=== PATIENT | male | born 1965 | race Hispanic/Latino ===

== ENCOUNTER 2017-07-19 15:06 | Emergency (ER) | payer SELFPAY ==
--- NOTE | 2017-07-19 19:17 | Emergency Department Report ---
Upper Extremity - HPI Chief Complaint: Extremity Injury, Upper Stated Complaint: SWOLLEN LEFT HAND Time Seen by Provider: 07/19/17 19:07 Upper Extremity: Left Hand (pain and swelling) Occurred When: 2 Days Mechanism: Unsure Severity: severe (7 out of 10) Symptoms: Yes Pain with Movement (left hand), Yes Swelling (left hand), No Deformity, No Limited Range of Movement, No Numbness, No Bruising/Ecchymosis, No Laceration or Abrasion Other History: PT reports that he has left hand pain for 3 days and unsure if he 's been stung by an insect but denies any direct trauma. He reports since swelling without any redness. Denies any fever or chills. Denies restriction in movement to left hand. Denies any pain in the wrist or forearm. Pain is 7 out of 10 and a can. Blood pressure is 156/103 and it is recorded inpatient triage. Report that he has high blood pressure and is not on medication but when I asked him he said his mom and dad have high blood pressure and he does not. He is asymptomatic with elevated blood pressure. ED Review of Systems ROS: Stated complaint: SWOLLEN LEFT HAND Other details as noted in HPI Comment: All other systems reviewed and negative Constitutional: no symptoms reported Respiratory: no symptoms reported Cardiovascular: denies: chest pain, palpitations, edema, syncope Gastrointestinal: denies: abdominal pain, nausea, vomiting, diarrhea, constipation Musculoskeletal: joint swelling, arthralgia. denies: back pain, myalgia Skin: denies: rash Neurological: denies: headache, numbness, paresthesias, confusion, abnormal gait , vertigo ED Past Medical Hx - Past Medical History Previous Medical History?: Yes Hx Hypertension: Yes (no meds) - Surgical History Past Surgical History?: No - Family History Family history: hypertension - Social History Smoking Status: Never Smoker Substance Use Type: None Other Social History: - Medications Home Medications: Home Medications Medication Instructions Recorded Confirmed Last Taken Type Ibuprofen [Motrin] 800 mg PO Q8HR PRN #12 tablet 07/12/15 Unknown Rx Sulfamethoxazole/Trimethoprim 1 each PO BID #20 tablet 07/12/15 Unknown Rx [Bactrim DS TAB] Cephalexin [Keflex] 500 mg PO Q6HR #28 capsule 01/05/16 Unknown Rx Ibuprofen [Motrin] 600 mg PO Q8H PRN #20 tablet 01/05/16 Unknown Rx Sulfamethoxazole/Trimethoprim 2 each PO BID #28 tablet 01/05/16 Unknown Rx [Bactrim DS TAB] oxyCODONE [Roxicodone TAB] 5 mg PO Q6HR PRN #10 tablet 01/05/16 Unknown Rx Cetirizine HCl [ZyrTEC] 10 mg PO QDAY #7 capsule 06/27/16 Unknown Rx Fluticasone [Flonase] 1 spray NS QDAY #1 bottle 06/27/16 Unknown Rx predniSONE [Deltasone] 50 mg PO QDAY #5 tab 06/27/16 Unknown Rx traMADol [Ultram] 50 mg PO Q6HR PRN #20 tablet 07/19/17 Unknown Rx Upper Extremity Exam - Exam General: Vital signs noted. No distress. Alert and acting appropriately. Head and Torso: No HEENT Abnormality, No Neck Tenderness, No Chest/Lungs Abnormality, No Abdominal Tenderness, No Back Tenderness Shoulder Exam: Yes Normal Range of Motion in Shoulder, No Shoulder Tenderness, No Clavicle Tenderness, No Shoulder Deformity, No AC Joint Tenderness Arm Exam: No Arm/Humerus Tenderness, No Arm Deformity Elbow: Yes Normal Range of Motion in Elbow, No Elbow Tenderness, No Elbow Deformity Forearm: No Forearm Tenderness, No Forearm Deformity, No Pain with Pronation, No Pain with Supination Wrist: Yes Normal ROM in Wrist, No Wrist Tenderness, No Wrist Deformity, No Snuffbox Tenderness, No Pain with Axial Thumb Compression Hand: Yes Hand Tenderness (mild tenderness to dorsal aspect of the left hand), Yes Normal ROM in Digit(s) (left hand and fingers), No Hand Deformity, No Digit Tenderness, No Digit(s) Deformity (no restrictions in movement. Patient able to open and close is hands without any difficulties.), No Tendon Dysfunction CMS Exam: Yes Normal Distal Pulses, Yes Normal Capillary Refill, Yes Normal Distal Sensation, No Broken Skin (no erythema noted.) ED Course Vital Signs 07/19/17 15:32 Temperature 97.8 F Pulse Rate 96 H Respiratory 18 Rate Blood Pressure 156/103 O2 Sat by Pulse 96 Oximetry Vital Signs 07/19/17 07/19/17 07/19/17 15:32 19:58 20:06 Temperature 97.8 F 98.4 F Pulse Rate 96 H 64 64 Respiratory 18 20 Rate Blood Pressure 156/103 183/102 Blood Pressure 183/102 [Left] O2 Sat by Pulse 96 98 Oximetry 07/19/17 07/19/17 20:59 21:32 Temperature Pulse Rate 63 64 Respiratory 20 20 Rate Blood Pressure Blood Pressure 175/106 160/90 [Left] O2 Sat by Pulse 97 97 Oximetry - Reevaluation(s) Reevaluation #1: 07/19/17 21:35 Pt given clonidine 0.2 mg for elevated blood pressure with blood pressure now at 160/90. He was also given Toradol 60 mg IM for arthralgia left hand. - Orthopedic Splinting/Casting Injury #1 Side: left Upper Extremity Injury Location: hand Upper Extremity Immobilizer: volar spint (prefabricated splint.) Additional Comments: Patient with good color, movement, sensation and temperature fingers of left hand. ED Medical Decision Making - Radiology Data Radiology results: report reviewed X-ray report of left hand reveals no acute osseous abnormality. Soft tissues grossly unremarkable. Joint space is maintained. He has 5 mm ganglionic cyst distal ulnar area. - Medical Decision Making ED course: Pt here reports he's been having left hand pain with some swelling over the past 3 days. He is unsure of causes but denies any trauma. Denies any fever or chills or redness to hand. Physical findings for mild swelling to left hand without any restrictions or erythema. Left hand splint placed and patient instructed that he needs to follow-up with orthopedic doctor. I also gave him results of x-ray which shows that he has no bony abnormality or no soft tissue swelling and possibility of distal ulnar ganglion cystPtblood pressure also elevated and he says he is a family history of high blood pressure and he reported in triage that he has high blood pressure without taking any medication but denies this to me. I discussed the patient that he needs to keep a log of his blood pressure and [facility] She was given Toradol 60 mg IM for left hand pain which relieved his pain and left hand splint placed the procedure note for detail. He was given clonidine 0.2 mg for elevated blood pressure and his blood pressure is at 160/90 currently. Patient discharged home with prescription for tramadol and to follow up with [facility] in 2-3 days. Critical care attestation.: If time is entered above; I have spent that time in minutes in the direct care of this critically ill patient, excluding procedure time. ED Disposition Clinical Impression: Ganglion, left hand, Hand pain, left, Swelling of left hand, Elevated blood pressure reading Disposition: DC-01 TO HOME OR SELFCARE Is pt being admited?: No Does the pt Need Aspirin: No Condition: Stable Instructions: Arthralgia (ED), Heart Healthy Diet (ED), Hypertension (ED), DASH Eating Plan (ED) Additional Instructions: He is follow up with orthopedic doctor as instructed Keep splint on until seen by orthopedic doctor Take tramadol for pain but please do not drive or operate heavy machinery as this medication can cause drowsiness. These keep a log a few blood pressure and follow-up at [facility]. Take log with [facility] for evaluation. Refer to detailed below for information and ganglion cyst A ganglion cyst is a fluid-filled swelling overlying a joint or tendon sheath. Ganglion cysts are thought to arise from a herniation of dense connective tissue from tendon sheaths, ligaments, joint capsules, bursae, and menisci. They contain a mucinous, gelatinous fluid. They can occur almost anywhere in the body, but the most common location for ganglion cysts is the dorsal side of the wrist (picture 1). (See 'Description' above.) Ganglion cysts are the most common soft tissue tumors of the hand. They can occur at all ages, but are most common in the second to fourth decades with a slight female predominance. (See 'Epidemiology' above.) Ganglia may present as an obvious swelling on physical examination or may only be manifested by joint (particularly wrist) pain. The cyst is typically firm, smooth, rounded, rubbery, and at times tender. Patients may notice that the size of the cyst changes over time. Occasionally, the cyst can impinge and cause nerve compression, resulting in sensory and/or motor loss. In addition, many patients seek medical attention for cosmetic reasons or out of concern for possible malignancy rather than due to any symptoms. (See 'Presentation' above.) The diagnostic approach depends on the physical examination. In patients with a readily palpable lesion, transillumination provides an easy in-office method for differentiating ganglia from solid tumors; ganglion cysts transilluminate while solid tumors do not. If available, ultrasonography is useful in the diagnosis of ganglia. For patients with occult wrist pain, magnetic resonance imaging (MRI) can differentiate most ganglia from other types of masses. (See ' Diagnosis' above.) Patients with asymptomatic ganglion cysts of the wrist or hand can be managed with reassurance and observation. Over 50 percent of patients may experience spontaneous resolution of ganglion cysts, and do not require intervention. (See 'Observation' above.) For patients with bothersome symptoms, we suggest aspiration of the ganglion cyst rather than surgical treatment (Grade 2C). However, the patient should be informed that more than half of ganglion cysts treated with aspiration will recur. Injection with glucocorticoids does not confer an added benefit. (See ' Ganglion cyst aspiration' above.) For patients who fail conservative therapy, surgical excision of the ganglion cyst may help relieve symptoms. (See 'Surgical therapy' above.) Prescriptions: traMADol [Ultram] 50 mg PO Q6HR PRN #20 tablet PRN Reason: Pain Referrals: [facility] [Outside] - 2-3 Days Forms: Accompanied Note, Work/School Release Form(ED)
[2017-07-19] MEDS ORDERED: TORADOL IM ONE (19:26)
[2017-07-19] MEDS ORDERED: CATAPRES PO ONE (20:05)
[2017-07-19] MEDS ORDERED: CATAPRES ONE (20:05)
--- NOTE | 2017-07-19 20:35 | XRay Report ---
FINAL REPORT EXAM: XR HAND 3+V LT HISTORY: lt hand pain and swelling TECHNIQUE: 3 views of left hand. PRIORS: None. FINDINGS: No apparent fracture or dislocation. Small and well-circumscribed, lucency in the distal ulnar aspect of capitate measuring approximately 5 mm may represent intraosseous ganglion cyst. Joint spaces maintained. Soft tissues grossly unremarkable. IMPRESSION: 1. No acute osseous abnormality.
[2017-07-20 11:32] VITALS: BP 160/90
== END 2017-07-19 22:02 | disposition home or self-care (01) ==
LOC: ED 15:06
DX: M67.442 Ganglion, left hand (principal); I10 Essential (primary) hypertension
CPT/HCPCS: 29125; 73130; 96372; 99283; J1885

== ENCOUNTER 2019-12-14 04:48 | Emergency (ER) | payer SELFPAY ==
[2019-12-14 05:32] LABS: Basophils # (Auto) 0.1 K/mm3 (0.0-0.1); Basophils % (Auto) 0.9 % (0.0-1.8); Eosinophils % (Auto) 0.6 % (0.0-4.3); Hematocrit 44.8 % (35.5-45.6); Hemoglobin 15.6 gm/dl (11.8-15.2); Lymphocytes # (Auto) 1.1 K/mm3 (1.2-5.4); Lymphocytes % (Auto) 19.5 % (13.4-35.0); Mean Corpuscular HGB Conc 35 % (32-34); Mean Corpuscular Volume 87 fl (84-94); Monocytes # (Auto) 0.8 K/mm3 (0.0-0.8); Platelet Count 171 K/mm3 (140-440); Red Blood Count 5.18 M/mm3 (3.65-5.03); Red Cell Distribution Width 13.1 % (13.2-15.2)
[2019-12-14 05:55] LABS: Alanine Aminotransferase 14 units/L (7-56); BUN/Creatinine Ratio 13; Blood Urea Nitrogen 13 mg/dL (9-20); Calcium 9.1 mg/dL (8.4-10.2); Hemolysis Index 16
[2019-12-14] MEDS ORDERED: METOCLOPRAMIDE 10 MG/2 ML INJ IV STA (10:17)
[2019-12-14] MEDS ORDERED: diphenhydrAMINE 50 MG/ML VIAL IV STA (10:17)
[2019-12-14] MEDS ORDERED: KETOROLAC 30 MG/1 ML INJ IV STA (10:17)
[2019-12-14] MEDS ORDERED: SODIUM CHLORIDE 0.9% 1000 ML 1,000 ML IV ONE (10:17)
[2019-12-14] MEDS ORDERED: cloNIDine 0.2 MG TAB PO STA (12:28)
[2019-12-14] MEDS ORDERED: cloNIDine 0.1 MG TAB ONE (12:45)
[2019-12-14 12:49] VITALS: BP 157/88
--- NOTE | 2019-12-14 13:01 | Emergency Department Report ---
ED Headache HPI - General Chief Complaint: Headache Stated Complaint: HEADACHE/NECK PAIN Time Seen by Provider: 12/14/19 09:34 - History of Present Illness Initial Comments: 54-year-old male with a past medical history of untreated hypertension as well as migraine presents emerged from complaining of a 1 to 2-day history of a non-improving headache primarily to the occipital parietal region and a dull throbbing fashion worse with light and position. Reports no loss of vision, no presyncope no tinnitus, no neck pain, fever, chills, sweats no chest pain no palpitations. States he has no history of hypertension but noncompliant with his medications. Reports having no history of any CVA or cardiovascular disease to knowledge. He does not take any stimulants or any any other substances or medications which could cause his blood pressure to elevate to his knowledge.. States that he has does have a primary care provider in this area but is trying to arrange a follow-up appointment in the near future Quality: mild, moderate Recent Head Trauma: frequent headaches Associated Symptoms: denies: fatigue, facial pain, loss of consciousness, nausea/vomiting, nasal congestion, seizures, sinus infection, stiff neck, vision changes Allergies/Adverse Reactions: Allergies No Known Allergies Allergy (Verified 07/12/15 21:34) Home Medications: Ambulatory Orders Ibuprofen [Motrin] 800 mg PO Q8HR PRN #12 tablet 07/12/15 Sulfamethoxazole/Trimethoprim [Bactrim DS TAB] 1 each PO BID #20 tablet 07/12/15 Ibuprofen [Motrin] 600 mg PO Q8H PRN #20 tablet 01/05/16 Sulfamethoxazole/Trimethoprim [Bactrim DS TAB] 2 each PO BID #28 tablet 01/05/16 cephALEXin [Keflex] 500 mg PO Q6HR #28 capsule 01/05/16 oxyCODONE [roxiCODONE] 5 mg PO Q6HR PRN #10 tablet 01/05/16 Cetirizine HCl [ZyrTEC] 10 mg PO QDAY #7 capsule 06/27/16 Fluticasone [Flonase] 1 spray NS QDAY #1 bottle 06/27/16 predniSONE [Deltasone] 50 mg PO QDAY #5 tab 06/27/16 traMADoL [Ultram] 50 mg PO Q6HR PRN #20 tablet 07/19/17 amLODIPine 5 mg PO DAILY #20 tab 12/14/19 ED Review of Systems ROS: Stated complaint: HEADACHE/NECK PAIN Other details as noted in HPI Comment: All other systems reviewed and negative ED Past Medical Hx - Past Medical History Previous Medical History?: Yes Hx Hypertension: Yes (no meds) - Surgical History Past Surgical History?: No - Social History Smoking Status: Never Smoker - Medications Home Medications: Home Medications Medication Instructions Recorded Confirmed Last Taken Type Ibuprofen [Motrin] 800 mg PO Q8HR PRN #12 tablet 07/12/15 Unknown Rx Sulfamethoxazole/Trimethoprim 1 each PO BID #20 tablet 07/12/15 Unknown Rx [Bactrim DS TAB] Ibuprofen [Motrin] 600 mg PO Q8H PRN #20 tablet 01/05/16 Unknown Rx Sulfamethoxazole/Trimethoprim 2 each PO BID #28 tablet 01/05/16 Unknown Rx [Bactrim DS TAB] cephALEXin [Keflex] 500 mg PO Q6HR #28 capsule 01/05/16 Unknown Rx oxyCODONE [roxiCODONE] 5 mg PO Q6HR PRN #10 tablet 01/05/16 Unknown Rx Cetirizine HCl [ZyrTEC] 10 mg PO QDAY #7 capsule 06/27/16 Unknown Rx Fluticasone [Flonase] 1 spray NS QDAY #1 bottle 06/27/16 Unknown Rx predniSONE [Deltasone] 50 mg PO QDAY #5 tab 06/27/16 Unknown Rx traMADoL [Ultram] 50 mg PO Q6HR PRN #20 tablet 07/19/17 Unknown Rx amLODIPine 5 mg PO DAILY #20 tab 12/14/19 Unknown Rx ED Physical Exam - General Limitations: No Limitations General appearance: alert, in no apparent distress - Head Head exam: Present: atraumatic, normocephalic - Eye Eye exam: Present: normal appearance, PERRL, EOMI. Absent: nystagmus Pupils: Present: normal accommodation, other (Negative funduscopic examination) - ENT ENT exam: Present: normal exam, mucous membranes moist, TM's normal bilaterally - Neck Neck exam: Present: normal inspection, full ROM. Absent: meningismus, lymphadenopathy, thyromegaly - Respiratory Respiratory exam: Present: normal lung sounds bilaterally. Absent: respiratory distress, wheezes, rales, rhonchi, chest wall tenderness, accessory muscle use - Cardiovascular Cardiovascular Exam: Present: regular rate, normal rhythm. Absent: systolic murmur, diastolic murmur, rubs, gallop - GI/Abdominal GI/Abdominal exam: Present: soft, normal bowel sounds - Rectal Rectal exam: Present: deferred - Extremities Exam Extremities exam: Present: normal inspection, full ROM, normal capillary refill - Back Exam Back exam: Present: normal inspection. Absent: CVA tenderness (R), CVA tenderness (L) - Neurological Exam Neurological exam: Present: alert, oriented X3, CN II-XII intact - Psychiatric Psychiatric exam: Present: normal affect, normal mood - Skin Skin exam: Present: warm, dry, intact, normal color. Absent: rash ED Course Vital Signs 12/14/19 12/14/19 12/14/19 04:50 10:17 12:49 Temperature 98.8 F Pulse Rate 91 H 76 78 Respiratory 18 20 Rate Blood Pressure 196/108 157/88 Blood Pressure 186/102 [Right] O2 Sat by Pulse 97 98 Oximetry 12/14/19 12:52 Temperature Pulse Rate 78 Respiratory 20 Rate Blood Pressure Blood Pressure 157/88 [Right] O2 Sat by Pulse 94 Oximetry ED Medical Decision Making - Lab Data Result diagrams: 12/14/19 05:07 12/14/19 05:07 - Medical Decision Making 54-year-old noncompliant male with a history of hypertension presents emerge department with a hypertensive headache/hypertensive urgency. He was treated accordingly with medications to resolve the hypertension and headache. Reports this is resting well with significantly improved pain known further neurological symptoms remain. Critical care attestation.: If time is entered above; I have spent that time in minutes in the direct care of this critically ill patient, excluding procedure time. ED Disposition Clinical Impression: Hypertensive urgency, Cephalgia Disposition: DC-01 TO HOME OR SELFCARE Is pt being admited?: No Does the pt Need Aspirin: No Condition: Stable Instructions: Acute Headache (ED), Hypertensive Crisis (ED), Hypertension (ED) Prescriptions: amLODIPine 5 mg PO DAILY #20 tab Referrals: PRIMARY CARE, [Primary Care Provider] - 3-5 Days ARNOLD MUNOZ MD [Staff Physician] - 3-5 Days
== END 2019-12-14 13:41 | disposition home or self-care (01) ==
LOC: ED 04:48
DX: I16.0 Hypertensive urgency (principal); G43.909 Migraine, unspecified, not intractable, without status migrainosus; Z79.1 Long term (current) use of non-steroidal anti-inflammatories (NSAID); Z79.899 Other long term (current) drug therapy
CPT/HCPCS: 36415; 80053; 85025; 96374; 96375; 99283; J1200; J1885; J2765; J7030

== ENCOUNTER 2019-12-23 14:25 | Emergency (ER) | payer SELFPAY ==
[2019-12-23 14:37] VITALS: BP 192/102
== END 2019-12-23 14:40 | disposition home or self-care (01) ==
LOC: ED 14:25
DX: J06.9 Acute upper respiratory infection, unspecified (principal)
CPT/HCPCS: 99281

== ENCOUNTER 2020-02-02 09:40 | Emergency (ER) | payer SELFPAY ==
[2020-02-02] MEDS ORDERED: MECLIZINE 25 MG TAB PO ONE (10:25)
[2020-02-02 10:42] LABS: Basophils # (Auto) 0.1 K/mm3 (0.0-0.1); Basophils % (Auto) 1.1 % (0.0-1.8); Eosinophils # (Auto) 0.1 K/mm3 (0.0-0.4); Eosinophils % (Auto) 1.8 % (0.0-4.3); Hematocrit 44.5 % (35.5-45.6); Hemoglobin 15.4 gm/dl (11.8-15.2); Lymphocytes # (Auto) 1.4 K/mm3 (1.2-5.4); Lymphocytes % (Auto) 23.5 % (13.4-35.0); Mean Corpuscular HGB Conc 35 % (32-34); Mean Corpuscular Volume 87 fl (84-94); Monocytes # (Auto) 0.4 K/mm3 (0.0-0.8); Monocytes % (Auto) 7.6 % (0.0-7.3); Platelet Count 206 K/mm3 (140-440); Red Blood Count 5.13 M/mm3 (3.65-5.03); Red Cell Distribution Width 13.3 % (13.2-15.2)
--- NOTE | 2020-02-02 10:50 | Emergency Department Report ---
ED Dizziness HPI - General Chief Complaint: Dizziness Stated Complaint: BLURRY VISION Time Seen by Provider: 02/02/20 10:19 Source: patient Mode of arrival: Ambulatory Limitations: No Limitations - History of Present Illness Initial Comments: 54-year-old male with history of hypertension presents to ED with dizziness and blurred vision upon waking this morning. Patient states he went to bed at around midnight feeling okay. Patient states he awoke at 530 this morning with dizziness described as room spinning, and feeling drunk. Patient reports his had to help him out of bed because he felt so off balance. Patient reports nausea, no vomiting. Also reports very mild headache. Patient reports blurred vision. When asked to cover each eye, vision is okay, however reports he is seeing double when eyes are uncovered. Patient denies any alcohol or drug use. MD Complaint: dizziness -: This morning Timing: awoke with symptoms Description: "room spinning" History of Same: No History of Trauma: No Severity: moderate Improves With: remaining still Worsens With: movement Associated Symptoms: denies: chest pain, cough, fever/chills, shortness of breath - Related Data Previous Rx's Medication Instructions Recorded Last Taken Type Ibuprofen [Motrin] 800 mg PO Q8HR PRN #12 tablet 07/12/15 Unknown Rx Sulfamethoxazole/Trimethoprim 1 each PO BID #20 tablet 07/12/15 Unknown Rx [Bactrim DS TAB] Ibuprofen [Motrin] 600 mg PO Q8H PRN #20 tablet 01/05/16 Unknown Rx Sulfamethoxazole/Trimethoprim 2 each PO BID #28 tablet 01/05/16 Unknown Rx [Bactrim DS TAB] cephALEXin [Keflex] 500 mg PO Q6HR #28 capsule 01/05/16 Unknown Rx oxyCODONE [roxiCODONE] 5 mg PO Q6HR PRN #10 tablet 01/05/16 Unknown Rx Cetirizine HCl [ZyrTEC] 10 mg PO QDAY #7 capsule 06/27/16 Unknown Rx Fluticasone [Flonase] 1 spray NS QDAY #1 bottle 06/27/16 Unknown Rx predniSONE [Deltasone] 50 mg PO QDAY #5 tab 06/27/16 Unknown Rx traMADoL [Ultram] 50 mg PO Q6HR PRN #20 tablet 07/19/17 Unknown Rx amLODIPine 5 mg PO DAILY #20 tab 12/23/19 Unknown Rx Meclizine [Antivert] 25 mg PO TID PRN #20 tablet 02/02/20 Unknown Rx metFORMIN [Glucophage] 500 mg PO BID #60 tablet 02/02/20 Unknown Rx Allergies Allergy/AdvReac Type Severity Reaction Status Date / Time No Known Allergies Allergy Verified 02/02/20 09:43 ED Review of Systems ROS: Stated complaint: BLURRY VISION Other details as noted in HPI Comment: All other systems reviewed and negative Constitutional: denies: chills, fever Respiratory: denies: cough, shortness of breath Cardiovascular: denies: chest pain Gastrointestinal: nausea. denies: vomiting Neurological: headache, vertigo. denies: weakness, numbness, paresthesias ED Past Medical Hx - Past Medical History Previous Medical History?: Yes Hx Hypertension: Yes - Surgical History Past Surgical History?: No - Social History Smoking Status: Never Smoker Substance Use Type: Alcohol - Medications Home Medications: Home Medications Medication Instructions Recorded Confirmed Last Taken Type Ibuprofen [Motrin] 800 mg PO Q8HR PRN #12 tablet 07/12/15 Unknown Rx Sulfamethoxazole/Trimethoprim 1 each PO BID #20 tablet 07/12/15 Unknown Rx [Bactrim DS TAB] Ibuprofen [Motrin] 600 mg PO Q8H PRN #20 tablet 01/05/16 Unknown Rx Sulfamethoxazole/Trimethoprim 2 each PO BID #28 tablet 01/05/16 Unknown Rx [Bactrim DS TAB] cephALEXin [Keflex] 500 mg PO Q6HR #28 capsule 01/05/16 Unknown Rx oxyCODONE [roxiCODONE] 5 mg PO Q6HR PRN #10 tablet 01/05/16 Unknown Rx Cetirizine HCl [ZyrTEC] 10 mg PO QDAY #7 capsule 06/27/16 Unknown Rx Fluticasone [Flonase] 1 spray NS QDAY #1 bottle 06/27/16 Unknown Rx predniSONE [Deltasone] 50 mg PO QDAY #5 tab 06/27/16 Unknown Rx traMADoL [Ultram] 50 mg PO Q6HR PRN #20 tablet 07/19/17 Unknown Rx amLODIPine 5 mg PO DAILY #20 tab 12/23/19 Unknown Rx Meclizine [Antivert] 25 mg PO TID PRN #20 tablet 02/02/20 Unknown Rx metFORMIN [Glucophage] 500 mg PO BID #60 tablet 02/02/20 Unknown Rx ED Physical Exam - General Limitations: No Limitations General appearance: alert, in no apparent distress - Head Head exam: Present: atraumatic, normocephalic - Eye Eye exam: Present: normal appearance, PERRL, nystagmus (Mild), other (Vision grossly intact with each eye covered, however with both eyes uncovered patient is seeing double) - ENT ENT exam: Present: mucous membranes moist - Neck Neck exam: Present: normal inspection - Respiratory Respiratory exam: Present: normal lung sounds bilaterally. Absent: respiratory distress - Cardiovascular Cardiovascular Exam: Present: regular rate, normal rhythm - GI/Abdominal GI/Abdominal exam: Present: soft. Absent: distended, tenderness - Extremities Exam Extremities exam: Present: normal inspection - Neurological Exam Neurological exam: Present: alert, oriented X3, CN II-XII intact, other (Finger- nose normal, [id number]-[id number] normal). Absent: motor sensory deficit - Psychiatric Psychiatric exam: Present: normal affect, normal mood - Skin Skin exam: Present: warm, dry, intact, normal color ED Course Vital Signs 02/02/20 02/02/20 02/02/20 09:47 10:45 11:00 Temperature 98.1 F Pulse Rate 70 64 67 Respiratory 18 13 15 Rate Blood Pressure 166/90 172/94 Blood Pressure 141/97 [Left] O2 Sat by Pulse 97 98 98 Oximetry 02/02/20 02/02/20 02/02/20 11:30 11:45 12:00 Temperature Pulse Rate 63 66 64 Respiratory 15 6 L 12 Rate Blood Pressure 157/86 168/89 159/87 Blood Pressure [Left] O2 Sat by Pulse 99 98 98 Oximetry 02/02/20 02/02/20 02/02/20 12:15 12:31 12:45 Temperature Pulse Rate 63 68 70 Respiratory 11 L 11 L 13 Rate Blood Pressure 164/87 163/96 158/94 Blood Pressure [Left] O2 Sat by Pulse 100 99 97 Oximetry 02/02/20 13:15 Temperature Pulse Rate 78 Respiratory 13 Rate Blood Pressure Blood Pressure 150/92 [Left] O2 Sat by Pulse 97 Oximetry - Reevaluation(s) Reevaluation #1: 02/02/20 11:41 Pt reports his dizziness has resolved since receiving the meclizine. Glucose 374. Denies hx of diabetes, however, does not currently have a PCP. States BP med prescription was obtained from an ER visit. Reevaluation #2: 02/02/20 12:36 Pt was able to ambulate around ED. Initially felt a bit unsteady, but this then improved and pt was able to walk unassisted w/ steady gait. Pt also reports resolution of double vision. Feels comfortable for d/c home. ED Medical Decision Making - Lab Data Result diagrams: 02/02/20 10:30 02/02/20 10:27 - EKG Data -: EKG Interpreted by Me EKG shows normal: sinus rhythm, axis, intervals, QRS complexes, ST-T waves Rate: normal - EKG Data Interpretation: no acute changes - Radiology Data Radiology results: report reviewed, image reviewed - Medical Decision Making 54 yo M w/ vertigo, double vision. Meclizine given, pt currently able to ambulate, reports symptoms greatly improved. Double vision resolved. IV fluids also given due to hyperglycemia w/o signs of DKA. Pt started on metformin. Outpt f/u advised. Return precautions given. - Differential Diagnosis CVA, BPV, metabolic abnormality Critical care attestation.: If time is entered above; I have spent that time in minutes in the direct care of this critically ill patient, excluding procedure time. ED Disposition Clinical Impression: BPV (benign positional vertigo), Hyperglycemia, New onset type 2 diabetes mellitus Disposition: DC- TO HOME OR SELFCARE Is pt being admited?: No Condition: Stable Instructions: Diabetes Mellitus Type 2 in Adults (ED) Prescriptions: Meclizine [Antivert] 25 mg PO TID PRN #20 tablet PRN Reason: Vertigo metFORMIN [Glucophage] 500 mg PO BID #60 tablet Referrals: [facility] MD JAKOB [Primary Care Provider] - 3-5 Days ARNOLD MUNOZ MD [Staff Physician] - 3-5 Days Forms: Work/School Release Form(ED) Time of Disposition: 12:39
[2020-02-02 11:06] LABS: Alanine Aminotransferase 13 units/L (7-56); Albumin 3.7 g/dL (3.9-5); BUN/Creatinine Ratio 11; Blood Urea Nitrogen 10 mg/dL (9-20); Calcium 8.8 mg/dL (8.4-10.2); Hemolysis Index 9
[2020-02-02] MEDS ORDERED: SODIUM CHLORIDE 0.9% 1000 ML 1,000 ML IV ONE (11:15)
--- NOTE | 2020-02-02 12:14 | Cat Scan Report ---
CT BRAIN: 02/02/2020 INDICATION / CLINICAL INFORMATION: dizziness, blurred vision. COMPARISON: None available. FINDINGS: BRAIN/INTRACRANIAL STRUCTURES: Unenhanced CT images of the brain demonstrate no evidence of acute int racranial abnormality. Ventricles and sulci are slightly prominent in size for a patient of this age, consistent with some u nderlying diffuse cerebral atrophy. There is no CT evidence of acute ischemic injury, hemorrhage, or mass. Chronic white matter hypoatten uation is noted. There is evidence of some old lacunar changes in the left basal ganglia. EXTRACRANIAL STRUCTURES: Unremarkable. IMPRESSION: No acute abnormality. Chronic changes. All CT scans at this location are performed using dose reduction to ALARA by means of automated expos ure control. Signer Name: Porter Kern MD Signed: 02/02/2020 12:10 PM Workstation Name: [id number]
[2020-02-02 13:20] VITALS: BP 150/92
== END 2020-02-02 13:15 | disposition home or self-care (01) ==
LOC: ED 09:40
DX: H81.10 Benign paroxysmal vertigo, unspecified ear (principal); E11.65 Type 2 diabetes mellitus with hyperglycemia; I10 Essential (primary) hypertension; Z79.1 Long term (current) use of non-steroidal anti-inflammatories (NSAID); Z79.4 Long term (current) use of insulin; Z79.899 Other long term (current) drug therapy
CPT/HCPCS: 36415; 70450; 80053; 85025; 93005; 96360; 99284; J7030

== ENCOUNTER 2020-12-22 04:58 | Emergency (ER) | payer SELFPAY ==
--- NOTE | 2020-12-22 08:08 | Emergency Department Report ---
ED Rash HPI - HPI Chief Complaint: Skin Rash Stated Complaint: RASH Time Seen by Provider: 12/22/20 07:41 Duration: 3 Days Location: Other (left groin) Suspected Cause: Unknown Rash Symptoms: Yes Itching, No Facial Swelling, No Tongue/Oral Swelling, No Breathing Difficulties, No Choking Sensation, No Wheezing/Dyspnea, No Peeling, No Blistering, No Fever, No Lightheaded, No Malaise, No Myalgias Severity: mild Other History: This is a 55-year-old male nontoxic, well nourished in appearance, no acute signs of distress presents to the ED with c/o of redness and pain with itching to left groin area times several days. Patient denies any pus or drainage. Patient denies any fever, chills, nausea, vomiting, chest pain , shortness of breath, headache or stiff neck. Patient denies any allergies. ED Review of Systems ROS: Stated complaint: RASH Other details as noted in HPI Comment: All other systems reviewed and negative Constitutional: denies: chills, fever Eyes: denies: eye pain, eye discharge, vision change ENT: denies: ear pain, throat pain Respiratory: denies: cough, shortness of breath, wheezing Cardiovascular: denies: chest pain, palpitations Endocrine: no symptoms reported Gastrointestinal: denies: abdominal pain, nausea, diarrhea Genitourinary: denies: urgency, dysuria Musculoskeletal: denies: back pain, joint swelling, arthralgia Skin: rash. denies: lesions, change in color, change in hair/nails, pruritus Neurological: denies: headache, weakness, paresthesias Psychiatric: denies: anxiety, depression Hematological/Lymphatic: denies: easy bleeding, easy bruising ED Past Medical Hx - Past Medical History Previous Medical History?: Yes Hx Hypertension: Yes Hx Diabetes: Yes - Surgical History Past Surgical History?: No - Social History Smoking Status: Never Smoker Substance Use Type: None - Medications Home Medications: Home Medications Medication Instructions Recorded Confirmed Last Taken Type Ibuprofen [Motrin] 800 mg PO Q8HR PRN #12 tablet 07/12/15 Unknown Rx Sulfamethoxazole/Trimethoprim 1 each PO BID #20 tablet 07/12/15 Unknown Rx [Bactrim DS TAB] Ibuprofen [Motrin] 600 mg PO Q8H PRN #20 tablet 01/05/16 Unknown Rx Sulfamethoxazole/Trimethoprim 2 each PO BID #28 tablet 01/05/16 Unknown Rx [Bactrim DS TAB] cephALEXin [Keflex] 500 mg PO Q6HR #28 capsule 01/05/16 Unknown Rx oxyCODONE [roxiCODONE] 5 mg PO Q6HR PRN #10 tablet 01/05/16 Unknown Rx Cetirizine HCl [ZyrTEC] 10 mg PO QDAY #7 capsule 06/27/16 Unknown Rx Fluticasone [Flonase] 1 spray NS QDAY #1 bottle 06/27/16 Unknown Rx predniSONE [Deltasone] 50 mg PO QDAY #5 tab 06/27/16 Unknown Rx traMADoL [Ultram] 50 mg PO Q6HR PRN #20 tablet 07/19/17 Unknown Rx amLODIPine 5 mg PO DAILY #20 tab 12/23/19 Unknown Rx Meclizine [Antivert] 25 mg PO TID PRN #20 tablet 02/02/20 Unknown Rx metFORMIN [Glucophage] 500 mg PO BID #60 tablet 02/02/20 Unknown Rx Clindamycin [Clindamycin CAP] 300 mg PO Q8H #21 cap 12/22/20 Unknown Rx Clotrimazole 1% [Lotrimin 1%] 15 gm TP BID #1 tube 12/22/20 Unknown Rx Rash Exam - Exam General: Vital signs noted. No distress. Alert and acting appropriately. HEENT: No Periorbital Edema, No Conjuctival Injection, No Chemosis, No Perioral Edema, No Tongue Edema, No Uvular Edema, No Compromised Airway, No Drooling Lungs: Yes Good Air Exchange (Normal Breath Sounds), No Wheezes, No Ronchi, No Stridor, No Cough, No Labored Respirations, No Retractions, No Use of Accessory Muscles, No Other Abnormal Lung Sounds Heart: Yes Regular, No Murmur Skin: Yes Other (Erythematous and scaly plaque in the crural fold and medial aspect of the left thigh), No Urticarial Rash, No Maculopapular Rash, No Morbilliform rash, No Bulla(e), No Excoriations, No Weeping, No Tenderness, No Erythema, No Edema, No Encrustations Other: Positive: Abdomen Normal, Neurologic Normal, Musculoskeletal Normal ED Course Vital Signs 12/22/20 05:16 Temperature 98.7 F Pulse Rate 95 H Respiratory 18 Rate Blood Pressure 156/88 O2 Sat by Pulse 97 Oximetry - Reevaluation(s) Reevaluation #1: 12/22/20 08:06 Patient is speaking in full sentences with no signs of distress noted. ED Medical Decision Making - Medical Decision Making 55-year-old male that presents with Tinea cruris. Patient is stable and was examined by me. Patient be treated with Clotrimazole and clindamycin due to possible surrounding cellulitis. Vital signs are stable. Patient was instructed to follow-up with a primary care doctor in 3-5 days or if symptoms worsen and continue return to emergency room as soon as possible. At time of discharge, the patient does not seem toxic or ill in appearance. No acute signs of distress noted. Patient agrees to discharge treatment plan of care. No further questions noted by the patient. Critical care attestation.: If time is entered above; I have spent that time in minutes in the direct care of this critically ill patient, excluding procedure time. ED Disposition Clinical Impression: Tinea cruris Disposition: DC-01 TO HOME OR SELFCARE Is pt being admited?: No Does the pt Need Aspirin: No Condition: Stable Instructions: Jock Itch, [id number] Additional Instructions: Follow-up with a primary care doctor in 3-5 days or if symptoms worsen and continue return to emergency room as soon as possible. Prescriptions: Clindamycin [Clindamycin CAP] 300 mg PO Q8H #21 cap Clotrimazole 1% [Lotrimin 1%] 15 gm TP BID #1 tube Referrals: MELANIE ESPARZA MD [Primary Care Provider] - 3-5 Days ARNOLD MUNOZ MD [Staff Physician] - 3-5 Days Forms: Work/School Release Form(ED) Time of Disposition: 08:09
[2020-12-22 08:45] VITALS: BP 175/104
== END 2020-12-22 08:44 | disposition home or self-care (01) ==
LOC: ED 04:58
DX: B35.6 Tinea cruris (principal); I10 Essential (primary) hypertension; E11.9 Type 2 diabetes mellitus without complications; Z79.899 Other long term (current) drug therapy
CPT/HCPCS: 99282

== ENCOUNTER 2021-05-01 23:21 | Emergency (ER) | payer SELFPAY ==
[2021-05-02 00:17] VITALS: BP 120/78
[2021-05-02] MEDS ORDERED: IBUPROFEN 600 MG TAB PO ONE (03:01)
[2021-05-02] MEDS ORDERED: LIDOCAINE-MPF (1%) 10 MG/1 ML VIAL 5 ML INFILTRATI ONE (03:01)
--- NOTE | 2021-05-02 03:51 | Emergency Department Report ---
ED Upper Extremity Inj HPI - General Chief Complaint: Laceration/Recheck/Suture Stated Complaint: RT HAND LACERATION Source: patient Mode of arrival: Ambulatory Limitations: No Limitations - History of Present Illness Initial Comments: Patient is a 55-year-old white male with a history of hypertension, chronic anger management issues and hva-jakyqwn-tdfxervil diabetes who presents to the ED with painful right palm and right small finger bleeding superficial lacerations after he punched a glass window at work in anger about 6 hours ago. Patient states that the bleeding is well controlled at this time. Patient also states that he is up-to-date with all his tetanus vaccinations. Patient denies numbness and tingling or weakness of right hand, dizziness, syncope, loss of consciousness, fall, nausea and vomiting or change in vision. MD Complaint: Injury to:: right (Per and right small finger laceration), hand (right palm laceration), finger (right small finger laceration) -: Sudden, hour(s) (6) Other Extremity Injury: Fingers: Right (Right lateral small finger laceration), Hand: Right (Right palm bleeding laceration) Other Injuries: none Handedness: right Place: work Severity scale (0 -10): 5 Improves With: none Worsens With: none Context: direct blow (Punched a glass window), laceration (Superficial laceration of right thumb and right small finger), injury Associated Symptoms: denies: weakness, numbness, neck pain, suspects foreign body, nausea/vomiting, heard/felt popping sensat - Related Data Previous Rx's Medication Instructions Recorded Last Taken Type Ibuprofen [Motrin] 800 mg PO Q8HR PRN #12 tablet 07/12/15 Unknown Rx Sulfamethoxazole/Trimethoprim 1 each PO BID #20 tablet 07/12/15 Unknown Rx [Bactrim DS TAB] Ibuprofen [Motrin] 600 mg PO Q8H PRN #20 tablet 01/05/16 Unknown Rx Sulfamethoxazole/Trimethoprim 2 each PO BID #28 tablet 01/05/16 Unknown Rx [Bactrim DS TAB] cephALEXin [Keflex] 500 mg PO Q6HR #28 capsule 01/05/16 Unknown Rx oxyCODONE [roxiCODONE] 5 mg PO Q6HR PRN #10 tablet 01/05/16 Unknown Rx Cetirizine HCl [ZyrTEC] 10 mg PO QDAY #7 capsule 06/27/16 Unknown Rx Fluticasone [Flonase] 1 spray NS QDAY #1 bottle 06/27/16 Unknown Rx predniSONE [Deltasone] 50 mg PO QDAY #5 tab 06/27/16 Unknown Rx traMADoL [Ultram] 50 mg PO Q6HR PRN #20 tablet 07/19/17 Unknown Rx amLODIPine 5 mg PO DAILY #20 tab 12/23/19 Unknown Rx Meclizine [Antivert] 25 mg PO TID PRN #20 tablet 02/02/20 Unknown Rx metFORMIN [Glucophage] 500 mg PO BID #60 tablet 02/02/20 Unknown Rx Clindamycin [Clindamycin CAP] 300 mg PO Q8H #21 cap 12/22/20 Unknown Rx Clotrimazole 1% [Lotrimin 1%] 15 gm TP BID #1 tube 12/22/20 Unknown Rx Ibuprofen [Motrin] 800 mg PO Q8HR PRN #24 tablet 05/02/21 Unknown Rx cephALEXin [Keflex] 500 mg PO Q12HR #20 cap 05/02/21 Unknown Rx Allergies Allergy/AdvReac Type Severity Reaction Status Date / Time No Known Allergies Allergy Verified 02/02/20 09:43 ED Review of Systems ROS: Stated complaint: RT HAND LACERATION Other details as noted in HPI Constitutional: denies: chills, fever Eyes: denies: eye pain, eye discharge, vision change ENT: denies: ear pain, throat pain Respiratory: denies: cough, shortness of breath, wheezing Cardiovascular: denies: chest pain, palpitations Endocrine: no symptoms reported Gastrointestinal: denies: abdominal pain, nausea, diarrhea Genitourinary: denies: urgency, dysuria Musculoskeletal: arthralgia (Right palm and small finger pain due to bleeding superficial laceration wounds). denies: back pain, joint swelling Skin: other (Bleeding superficial laceration of right palm and right small finger). denies: rash, lesions Neurological: denies: headache, weakness, paresthesias Psychiatric: denies: anxiety, depression Hematological/Lymphatic: denies: easy bleeding, easy bruising ED Past Medical Hx - Past Medical History Previous Medical History?: Yes Hx Hypertension: Yes Hx Diabetes: Yes - Surgical History Past Surgical History?: No - Social History Smoking Status: Never Smoker Substance Use Type: None - Medications Home Medications: Home Medications Medication Instructions Recorded Confirmed Last Taken Type Ibuprofen [Motrin] 800 mg PO Q8HR PRN #12 tablet 07/12/15 Unknown Rx Sulfamethoxazole/Trimethoprim 1 each PO BID #20 tablet 07/12/15 Unknown Rx [Bactrim DS TAB] Ibuprofen [Motrin] 600 mg PO Q8H PRN #20 tablet 01/05/16 Unknown Rx Sulfamethoxazole/Trimethoprim 2 each PO BID #28 tablet 01/05/16 Unknown Rx [Bactrim DS TAB] cephALEXin [Keflex] 500 mg PO Q6HR #28 capsule 01/05/16 Unknown Rx oxyCODONE [roxiCODONE] 5 mg PO Q6HR PRN #10 tablet 01/05/16 Unknown Rx Cetirizine HCl [ZyrTEC] 10 mg PO QDAY #7 capsule 06/27/16 Unknown Rx Fluticasone [Flonase] 1 spray NS QDAY #1 bottle 06/27/16 Unknown Rx predniSONE [Deltasone] 50 mg PO QDAY #5 tab 06/27/16 Unknown Rx traMADoL [Ultram] 50 mg PO Q6HR PRN #20 tablet 07/19/17 Unknown Rx amLODIPine 5 mg PO DAILY #20 tab 12/23/19 Unknown Rx Meclizine [Antivert] 25 mg PO TID PRN #20 tablet 02/02/20 Unknown Rx metFORMIN [Glucophage] 500 mg PO BID #60 tablet 02/02/20 Unknown Rx Clindamycin [Clindamycin CAP] 300 mg PO Q8H #21 cap 12/22/20 Unknown Rx Clotrimazole 1% [Lotrimin 1%] 15 gm TP BID #1 tube 12/22/20 Unknown Rx Ibuprofen [Motrin] 800 mg PO Q8HR PRN #24 tablet 05/02/21 Unknown Rx cephALEXin [Keflex] 500 mg PO Q12HR #20 cap 05/02/21 Unknown Rx ED Physical Exam - General Limitations: No Limitations General appearance: alert, in no apparent distress - Head Head exam: Present: atraumatic, normocephalic, normal inspection - Eye Eye exam: Present: normal appearance, PERRL, EOMI Pupils: Present: normal accommodation - ENT ENT exam: Present: normal exam, normal orophraynx, mucous membranes moist, TM's normal bilaterally, normal external ear exam - Neck Neck exam: Present: normal inspection, full ROM. Absent: tenderness - Respiratory Respiratory exam: Present: normal lung sounds bilaterally. Absent: respiratory distress, wheezes, rhonchi, chest wall tenderness, accessory muscle use, decreased breath sounds, prolonged expiratory - Cardiovascular Cardiovascular Exam: Present: regular rate, normal rhythm, normal heart sounds. Absent: systolic murmur, diastolic murmur, rubs, gallop - GI/Abdominal GI/Abdominal exam: Present: soft, normal bowel sounds. Absent: tenderness, guarding, rebound, hyperactive bowel sounds, hypoactive bowel sounds, organomegaly - Extremities Exam Extremities exam: Present: full ROM, tenderness (Palpable mild right palm and right small finger laceration due to a superficial 2 cm and 1 cm laceration wounds respectively), normal capillary refill. Absent: pedal edema, joint swelling, calf tenderness - Back Exam Back exam: Present: normal inspection, full ROM. Absent: tenderness, CVA tenderness (R), CVA tenderness (L), muscle spasm, paraspinal tenderness, vertebral tenderness - Neurological Exam Neurological exam: Present: alert, oriented X3, CN II-XII intact, normal gait, reflexes normal - Psychiatric Psychiatric exam: Present: normal affect, normal mood - Skin Skin exam: Present: warm, dry, normal color, other (Bleeding right palm and small finger 2 cm and 1 cm superficial laceration wounds respectively). Absent: rash ED Course Vital Signs 05/02/21 00:16 Temperature 98.9 F Pulse Rate 82 Respiratory 20 Rate Blood Pressure 120/78 [Left] O2 Sat by Pulse 97 Oximetry - Laceration /Wound Repair Right Palm Hand Wound Location: upper extremity (Right palm superficial laceration) Wound Length (cm): 2 Wound's Depth, Shape: superficial Wound Explored: no foreign body removed Irrigated w/ Saline (ccs): 200 Betadine Prep?: No Wound Debrided: extensive Wound Repaired With: Dermabond (1) Sterile Dressing Applied?: Yes Progress: The wound was extensively debrided with normal saline and closed with Dermabond. Patient tolerated procedure well. The wound was then dressed appropriately. Patient is neurovascularly intact. Right Finger Wound Location: upper extremity (Right small finger superficial laceration) Wound Length (cm): 1 Wound's Depth, Shape: superficial Wound Explored: no foreign body removed Irrigated w/ Saline (ccs): 200 Betadine Prep?: No Wound Debrided: extensive Wound Repaired With: Dermabond Sterile Dressing Applied?: Yes Progress: The wound was extensively debrided with normal saline and approximated with Dermabond. Patient tolerated the procedure well. The wound was then dressed appropriately. The patient is neurovascularly intact ED Medical Decision Making - Medical Decision Making This is a 55-year-old white male with a history of hypertension, chronic anger management issues and [id number] diabetes who presents to the ED with painful right palm and right small finger bleeding superficial lacerations after he punched a glass window at work in anger about 6 hours ago. Patient states that the bleeding is well controlled at this time. Patient also states that he is up-to-date with all his tetanus vaccinations. In the ED, patient is alert and oriented x3 and is not in any distress. Patient was treated for pain in the ED. The right palm and right small finger superficial bleeding lacerations were cleaned and extensively debrided with normal saline. Dermabond was used to close the wounds. Patient tolerated the procedure well. The wounds were then dressed appropriately and the patient was therefore discharged home on pain medication and prophylactic antibiotics and advised to follow-up with his primary care physician in 7 to 10 days for reevaluation or return to the ED immediately if symptoms get worse. - Differential Diagnosis Hand laceration; finger laceration; hand contusion Critical care attestation.: If time is entered above; I have spent that time in minutes in the direct care of this critically ill patient, excluding procedure time. ED Disposition Clinical Impression: Laceration of right palm without complication Qualifiers: Encounter type: initial encounter Qualified Code(s): S61.411A - Laceration without foreign body of right hand, initial encounter Laceration of right little finger w/o foreign body w/o damage to nail Qualifiers: Encounter type: initial encounter Qualified Code(s): S61.216A - Laceration without foreign body of right little finger without damage to nail, initial encounter Disposition: TO HOME OR SELFCARE Is pt being admited?: No Does the pt Need Aspirin: No Condition: Stable Instructions: Laceration Care, Adult, [id number], Sutures, [place], or Adhesive Wound Closure, [id number] Additional Instructions: Take medication with food, drink plenty of fluids and follow-up with your primary care physician in 7 to 10 days for reevaluation. Return to the ED immediately if symptoms get worse. Prescriptions: cephALEXin [Keflex] 500 mg PO Q12HR #20 cap Ibuprofen [Motrin] 800 mg PO Q8HR PRN #24 tablet PRN Reason: Pain , Severe (7-10) Referrals: [facility] [Provider Group] - 7-10 days Forms: Work/School Release Form(ED) Time of Disposition: 03:58 Print Language: JAPANESE
== END 2021-05-02 04:10 | disposition home or self-care (01) ==
LOC: ED 23:21
DX: S61.216A Laceration without foreign body of right little finger without damage to nail, initial encounter (principal); S61.411A Laceration without foreign body of right hand, initial encounter; R04.0 Epistaxis; I10 Essential (primary) hypertension; E11.9 Type 2 diabetes mellitus without complications; Z79.899 Other long term (current) drug therapy; W25.XXXA Contact with sharp glass, initial encounter; Y93.89 Activity, other specified; Y92.89 Other specified places as the place of occurrence of the external cause; Y99.0 Civilian activity done for income or pay

== ENCOUNTER 2021-09-07 19:58 | Emergency (ER) | payer SELFPAY ==
[2021-09-07 20:05] VITALS: BP 154/82
--- NOTE | 2021-09-07 21:21 | Emergency Department Report ---
ED General Adult HPI - General Chief complaint: Extremity Injury, Upper Stated complaint: HAND PAIN/SWELLING Time Seen by Provider: 09/07/21 20:18 Source: family Mode of arrival: Ambulatory Limitations: No Limitations - History of Present Illness Initial comments: 56-year-old male patient with history of diabetes just emerged from complaining of pain and swelling to the right hand of unknown etiology. States that he may have scraped his hand or may have been poked in the hand causing the issue of swelling but he reports no direct trauma no blunt trauma. No fever, chills, sweats. No chest pain or palpitation. No nausea, no vomiting no numbness, no tingling. -: Gradual Radiation: non-radiation Quality: dull Consistency: constant Improves with: none Worsens with: none Associated Symptoms: denies other symptoms. denies: confusion, diaphoresis, loss of appetite, malaise, nausea/vomiting, shortness of breath, syncope, weakness - Related Data Previous Rx's Medication Instructions Recorded Last Taken Type Ibuprofen [Motrin] 800 mg PO Q8HR PRN #12 tablet 07/12/15 Unknown Rx Sulfamethoxazole/Trimethoprim 1 each PO BID #20 tablet 07/12/15 Unknown Rx [Bactrim DS TAB] Ibuprofen [Motrin] 600 mg PO Q8H PRN #20 tablet 01/05/16 Unknown Rx Sulfamethoxazole/Trimethoprim 2 each PO BID #28 tablet 01/05/16 Unknown Rx [Bactrim DS TAB] cephALEXin [Keflex] 500 mg PO Q6HR #28 capsule 01/05/16 Unknown Rx oxyCODONE [roxiCODONE] 5 mg PO Q6HR PRN #10 tablet 01/05/16 Unknown Rx Cetirizine HCl [ZyrTEC] 10 mg PO QDAY #7 capsule 06/27/16 Unknown Rx Fluticasone [Flonase] 1 spray NS QDAY #1 bottle 06/27/16 Unknown Rx predniSONE [Deltasone] 50 mg PO QDAY #5 tab 06/27/16 Unknown Rx traMADoL [Ultram] 50 mg PO Q6HR PRN #20 tablet 07/19/17 Unknown Rx amLODIPine 5 mg PO DAILY #20 tab 12/23/19 Unknown Rx Meclizine [Antivert] 25 mg PO TID PRN #20 tablet 04/24/20 Unknown Rx metFORMIN [Glucophage] 500 mg PO BID #60 tablet 02/02/20 Unknown Rx Clindamycin [Clindamycin CAP] 300 mg PO Q8H #21 cap 12/22/20 Unknown Rx Clotrimazole 1% [Lotrimin 1%] 15 gm TP BID #1 tube 12/22/20 Unknown Rx Ibuprofen [Motrin] 800 mg PO Q8HR PRN #24 tablet 05/02/21 Unknown Rx cephALEXin [Keflex] 500 mg PO Q12HR #20 cap 05/02/21 Unknown Rx Sulfamethoxazole/Trimethoprim 1 each PO BID #20 tablet 09/07/21 Unknown Rx [Bactrim DS TAB] cephALEXin [Keflex] 500 mg PO Q8HR #30 cap 09/07/21 Unknown Rx Allergies Allergy/AdvReac Type Severity Reaction Status Date / Time No Known Allergies Allergy Verified 09/07/21 20:05 ED Review of Systems ROS: Stated complaint: HAND PAIN/SWELLING Other details as noted in HPI Comment: All other systems reviewed and negative ED Past Medical Hx - Past Medical History Hx Hypertension: Yes Hx Diabetes: Yes - Social History Smoking Status: Never Smoker Substance Use Type: None - Medications Home Medications: Home Medications Medication Instructions Recorded Confirmed Last Taken Type Ibuprofen [Motrin] 800 mg PO Q8HR PRN #12 tablet 07/12/15 Unknown Rx Sulfamethoxazole/Trimethoprim 1 each PO BID #20 tablet 07/12/15 Unknown Rx [Bactrim DS TAB] Ibuprofen [Motrin] 600 mg PO Q8H PRN #20 tablet 01/05/16 Unknown Rx Sulfamethoxazole/Trimethoprim 2 each PO BID #28 tablet 01/05/16 Unknown Rx [Bactrim DS TAB] cephALEXin [Keflex] 500 mg PO Q6HR #28 capsule 01/05/16 Unknown Rx oxyCODONE [roxiCODONE] 5 mg PO Q6HR PRN #10 tablet 01/05/16 Unknown Rx Cetirizine HCl [ZyrTEC] 10 mg PO QDAY #7 capsule 06/27/16 Unknown Rx Fluticasone [Flonase] 1 spray NS QDAY #1 bottle 06/27/16 Unknown Rx predniSONE [Deltasone] 50 mg PO QDAY #5 tab 06/27/16 Unknown Rx traMADoL [Ultram] 50 mg PO Q6HR PRN #20 tablet 07/19/17 Unknown Rx amLODIPine 5 mg PO DAILY #20 tab 12/23/19 Unknown Rx Meclizine [Antivert] 25 mg PO TID PRN #20 tablet 02/02/20 Unknown Rx metFORMIN [Glucophage] 500 mg PO BID #60 tablet 02/02/20 Unknown Rx Clindamycin [Clindamycin CAP] 300 mg PO Q8H #21 cap 12/22/20 Unknown Rx Clotrimazole 1% [Lotrimin 1%] 15 gm TP BID #1 tube 12/22/20 Unknown Rx Ibuprofen [Motrin] 800 mg PO Q8HR PRN #24 tablet 05/02/21 Unknown Rx cephALEXin [Keflex] 500 mg PO Q12HR #20 cap 05/02/21 Unknown Rx Sulfamethoxazole/Trimethoprim 1 each PO BID #20 tablet 09/07/21 Unknown Rx [Bactrim DS TAB] cephALEXin [Keflex] 500 mg PO Q8HR #30 cap 09/07/21 Unknown Rx ED Physical Exam - General Limitations: No Limitations General appearance: alert, in no apparent distress - Head Head exam: Present: atraumatic, normocephalic - Eye Eye exam: Present: normal appearance, PERRL, EOMI - ENT ENT exam: Present: normal exam, normal orophraynx, mucous membranes moist, TM's normal bilaterally - Neck Neck exam: Present: normal inspection, full ROM - Respiratory Respiratory exam: Present: normal lung sounds bilaterally. Absent: respiratory distress, wheezes, rales, chest wall tenderness, accessory muscle use - Cardiovascular Cardiovascular Exam: Present: regular rate, normal rhythm. Absent: systolic murmur, diastolic murmur, rubs, gallop - GI/Abdominal GI/Abdominal exam: Present: soft, normal bowel sounds - Rectal Rectal exam: Present: deferred - Extremities Exam Extremities exam: Present: tenderness, normal capillary refill - Expanded Upper Extremity Exam Right Hand Wrist exam: Present: tenderness, swelling, erythema Hand L/R Back: 1 - Redness swelling warmth to this region of the hand cellulitis is noted a small abrasion to the central area with some nail trauma visual excessive nailbiting is noted to the point of bleeding - Back Exam Back exam: Present: normal inspection. Absent: CVA tenderness (R), CVA tenderness (L) - Neurological Exam Neurological exam: Present: alert, oriented X3, CN II-XII intact, normal gait, motor sensory deficit - Psychiatric Psychiatric exam: Present: normal affect, normal mood. Absent: flat affect, manic - Skin Skin exam: Present: warm, dry, intact, normal color. Absent: rash, cyanosis, diaphoretic, urticaria ED Course Vital Signs 09/07/21 20:01 Temperature 98.4 F Pulse Rate 80 Respiratory 17 Rate Blood Pressure 154/82 [Right] O2 Sat by Pulse 98 Oximetry Critical care attestation.: If time is entered above; I have spent that time in minutes in the direct care of this critically ill patient, excluding procedure time. ED Disposition Clinical Impression: Cellulitis of hand Disposition: HOME / SELF CARE / HOMELESS Is pt being admited?: No Does the pt Need Aspirin: No Condition: Stable Instructions: Cellulitis, Adult Prescriptions: Sulfamethoxazole/Trimethoprim [Bactrim DS TAB] 1 each PO BID #20 tablet cephALEXin [Keflex] 500 mg PO Q8HR #30 cap Referrals: [facility] [Provider Group] - 3-5 Days
== END 2021-09-07 22:04 | disposition home or self-care (01) ==
LOC: ED 19:58
DX: L03.113 Cellulitis of right upper limb (principal); I10 Essential (primary) hypertension; E11.9 Type 2 diabetes mellitus without complications; Z79.899 Other long term (current) drug therapy
CPT/HCPCS: 99282

== ENCOUNTER 2021-09-17 21:59 | Emergency (ER) | payer SELFPAY ==
[2021-09-17 22:03] VITALS: BP 135/78
--- NOTE | 2021-09-18 00:47 | Emergency Department Report ---
ED General Adult HPI - General Chief complaint: Extremity Injury, Upper Stated complaint: RIGHT HAND SWELLING AND PAIN Time Seen by Provider: 09/17/21 22:41 Source: patient Mode of arrival: Ambulatory Limitations: No Limitations - History of Present Illness Initial comments: 48-year-old male with asthma department complaining of a few month history of r ight hand pain and swelling to the knuckle area of unknown etiology it was believed to be cellulitis he started taking antibiotics in the form of Keflex and Bactrim DS with no improvement of symptoms. States that there is no pain but there is swelling and decreased range of motion of an unknown etiology was antibiotics did not resolve so he seeks further evaluation of the issue. He reports no recent trauma. No numbness, no tingling, no fever, chills, sweats. -: Gradual Radiation: non-radiation Severity scale (0 -10): 4 Improves with: none Worsens with: none Treatments Prior to Arrival: none - Related Data Previous Rx's Medication Instructions Recorded Last Taken Type Ibuprofen [Motrin] 800 mg PO Q8HR PRN #12 tablet 07/12/15 Unknown Rx Sulfamethoxazole/Trimethoprim 1 each PO BID #20 tablet 07/12/15 Unknown Rx [Bactrim DS TAB] Ibuprofen [Motrin] 600 mg PO Q8H PRN #20 tablet 01/05/16 Unknown Rx Sulfamethoxazole/Trimethoprim 2 each PO BID #28 tablet 01/05/16 Unknown Rx [Bactrim DS TAB] cephALEXin [Keflex] 500 mg PO Q6HR #28 capsule 01/05/16 Unknown Rx oxyCODONE [roxiCODONE] 5 mg PO Q6HR PRN #10 tablet 01/05/16 Unknown Rx Cetirizine HCl [ZyrTEC] 10 mg PO QDAY #7 capsule 06/27/16 Unknown Rx Fluticasone [Flonase] 1 spray NS QDAY #1 bottle 06/27/16 Unknown Rx predniSONE [Deltasone] 50 mg PO QDAY #5 tab 06/27/16 Unknown Rx traMADoL [Ultram] 50 mg PO Q6HR PRN #20 tablet 07/19/17 Unknown Rx amLODIPine 5 mg PO DAILY #20 tab 12/23/19 Unknown Rx Meclizine [Antivert] 25 mg PO TID PRN #20 tablet 02/02/20 Unknown Rx metFORMIN [Glucophage] 500 mg PO BID #60 tablet 02/02/20 Unknown Rx Clindamycin [Clindamycin CAP] 300 mg PO Q8H #21 cap 12/22/20 Unknown Rx Clotrimazole 1% [Lotrimin 1%] 15 gm TP BID #1 tube 12/22/20 Unknown Rx Ibuprofen [Motrin] 800 mg PO Q8HR PRN #24 tablet 05/02/21 Unknown Rx cephALEXin [Keflex] 500 mg PO Q12HR #20 cap 05/02/21 Unknown Rx Sulfamethoxazole/Trimethoprim 1 each PO BID #20 tablet 09/07/21 Unknown Rx [Bactrim DS TAB] cephALEXin [Keflex] 500 mg PO Q8HR #30 cap 09/07/21 Unknown Rx predniSONE [Deltasone] 20 mg PO QDAY #5 tab 09/18/21 Unknown Rx Allergies Allergy/AdvReac Type Severity Reaction Status Date / Time No Known Allergies Allergy Verified 09/07/21 20:05 ED Review of Systems ROS: Stated complaint: RIGHT HAND SWELLING AND PAIN Other details as noted in HPI Comment: All other systems reviewed and negative ED Past Medical Hx - Past Medical History Previous Medical History?: Yes Hx Hypertension: Yes Hx Diabetes: Yes - Surgical History Past Surgical History?: No - Social History Smoking Status: Never Smoker Substance Use Type: None - Medications Home Medications: Home Medications Medication Instructions Recorded Confirmed Last Taken Type Ibuprofen [Motrin] 800 mg PO Q8HR PRN #12 tablet 07/12/15 Unknown Rx Sulfamethoxazole/Trimethoprim 1 each PO BID #20 tablet 07/12/15 Unknown Rx [Bactrim DS TAB] Ibuprofen [Motrin] 600 mg PO Q8H PRN #20 tablet 01/05/16 Unknown Rx Sulfamethoxazole/Trimethoprim 2 each PO BID #28 tablet 01/05/16 Unknown Rx [Bactrim DS TAB] cephALEXin [Keflex] 500 mg PO Q6HR #28 capsule 01/05/16 Unknown Rx oxyCODONE [roxiCODONE] 5 mg PO Q6HR PRN #10 tablet 01/05/16 Unknown Rx Cetirizine HCl [ZyrTEC] 10 mg PO QDAY #7 capsule 06/27/16 Unknown Rx Fluticasone [Flonase] 1 spray NS QDAY #1 bottle 06/27/16 Unknown Rx predniSONE [Deltasone] 50 mg PO QDAY #5 tab 06/27/16 Unknown Rx traMADoL [Ultram] 50 mg PO Q6HR PRN #20 tablet 07/19/17 Unknown Rx amLODIPine 5 mg PO DAILY #20 tab 12/23/19 Unknown Rx Meclizine [Antivert] 25 mg PO TID PRN #20 tablet 02/02/20 Unknown Rx metFORMIN [Glucophage] 500 mg PO BID #60 tablet 02/02/20 Unknown Rx Clindamycin [Clindamycin CAP] 300 mg PO Q8H #21 cap 12/22/20 Unknown Rx Clotrimazole 1% [Lotrimin 1%] 15 gm TP BID #1 tube 12/22/20 Unknown Rx Ibuprofen [Motrin] 800 mg PO Q8HR PRN #24 tablet 05/02/21 Unknown Rx cephALEXin [Keflex] 500 mg PO Q12HR #20 cap 05/02/21 Unknown Rx Sulfamethoxazole/Trimethoprim 1 each PO BID #20 tablet 09/07/21 Unknown Rx [Bactrim DS TAB] cephALEXin [Keflex] 500 mg PO Q8HR #30 cap 09/07/21 Unknown Rx predniSONE [Deltasone] 20 mg PO QDAY #5 tab 09/18/21 Unknown Rx ED Physical Exam - General Limitations: No Limitations General appearance: alert, in no apparent distress - Head Head exam: Present: atraumatic, normocephalic - Eye Eye exam: Present: normal appearance - ENT ENT exam: Present: mucous membranes moist - Neck Neck exam: Present: normal inspection - Respiratory Respiratory exam: Present: normal lung sounds bilaterally. Absent: respiratory distress - Cardiovascular Cardiovascular Exam: Present: regular rate, normal rhythm. Absent: systolic murmur, diastolic murmur, rubs, gallop - GI/Abdominal GI/Abdominal exam: Present: soft, normal bowel sounds - Rectal Rectal exam: Present: deferred - Extremities Exam Extremities exam: Present: normal inspection, joint swelling (To the second and third metacarpophalangeal joints. Decreased range of motion formal flexion at those joints as well.) - Back Exam Back exam: Present: normal inspection. Absent: CVA tenderness (R), CVA tenderness (L) - Neurological Exam Neurological exam: Present: alert, oriented X3, CN II-XII intact. Absent: abnormal gait - Psychiatric Psychiatric exam: Present: normal affect, normal mood. Absent: flat affect, manic, homicidal ideation - Skin Skin exam: Present: warm, dry, intact, normal color. Absent: rash, diaphoretic, erythema, urticaria, pallor, abrasion ED Course Vital Signs 09/17/21 09/18/21 22:03 00:37 Temperature 98.2 F Pulse Rate 96 H 81 Respiratory 18 14 Rate Blood Pressure 135/78 [Right] O2 Sat by Pulse 100 Oximetry Critical care attestation.: If time is entered above; I have spent that time in minutes in the direct care of this critically ill patient, excluding procedure time. ED Disposition Clinical Impression: Arthralgia of hand, right Disposition: 01 HOME / SELF CARE / HOMELESS Is pt being admited?: No Does the pt Need Aspirin: No Condition: Stable Instructions: Musculoskeletal Pain, How to Use Cold Therapy, Joint Pain Prescriptions: predniSONE [Deltasone] 20 mg PO QDAY #5 tab Referrals: ARNOLD MUNOZ MD [Staff Physician] - 3-5 Days PRIMARY CARE, [Primary Care Provider] - 3-5 Days
== END 2021-09-18 00:38 | disposition home or self-care (01) ==
LOC: ED 21:59
DX: M25.541 Pain in joints of right hand (principal); I10 Essential (primary) hypertension; E11.9 Type 2 diabetes mellitus without complications; Z79.899 Other long term (current) drug therapy
CPT/HCPCS: 99282

== ENCOUNTER 2022-06-11 18:29 | Emergency (ER) | payer SELFPAY ==
[2022-06-11 19:48] VITALS: BP 128/76
== END 2022-06-12 02:41 | disposition left against medical advice (07) ==
LOC: ED 18:29
DX: M79.646 Pain in unspecified finger(s) (principal); Z53.21 Procedure and treatment not carried out due to patient leaving prior to being seen by health care provider